=== PATIENT | female | born 1960 | race Two or more races ===

== ENCOUNTER 2021-08-06 13:34 | Outpatient (CLI) | payer OTHER ==
[2021-08-13] MEDS ORDERED: ASPI-992 PO (08:52)
== END 2021-08-06 23:59 | disposition home or self-care (01) ==
LOC: LAB 13:34
PROVIDERS: ATTEND Specialist
DX: Z01.812 Encounter for preprocedural laboratory examination (principal); Z20.822 Contact with and (suspected) exposure to COVID-19
CPT/HCPCS: C9803; U0003

== ENCOUNTER 2021-08-11 05:01 | Inpatient (IN) | payer OTHER ==
[~2021-08-11] VITALS: Ht 170.2 cm; Wt 80.5 kg
[2021-08-11 05:30] VITALS: BP 120/77
--- NOTE | 2021-08-11 05:30 | NUR ---
RN ms admission notes Pt is arrived at the unit ambulatory. Pt is alert and oriented X4. Respiration is normal. No SOB. No s/s of distress noted. IV site at L hand # 20 is clean, intact and flushes easily. Vs is stable. Pt is NPO since last night. Pt is going for R total knee arthroplasty with Dr. lindsay. Consent is signed. pt verbalized understanding. Reorient pt to the room, safety and the use of call light. Safety precautions is maintained. Bed at low position, brakes locked, side rails upX2 and call light is with reach. will continue to monitor.
--- NOTE | 2021-08-11 06:15 | NUR ---
RN ms notes Pt is going for surgery picked up by OR.
[2021-08-11] MEDS ORDERED: BUPIVACAINE 0.5 % PF 150 MG/30 ML VIAL ONE (06:22)
[2021-08-11] MEDS ORDERED: POLYMYXIN B SULFATE 500,000 UNITS ONE (06:22)
[2021-08-11] MEDS ORDERED: ANESTHESIA TRAY IN PYXIS 1 EA TRAY MC ONE ×2 (06:22→06:28)
[2021-08-11] MEDS ORDERED: PROPOFOL 100 ML ONE (06:32)
[2021-08-11] MEDS ORDERED: FENTANYL PF 100MCG/2ML AMPUL ONE (06:39)
[2021-08-11] MEDS ORDERED: MIDAZOLAM HCL 2 MG/2ML VIAL ONE (06:39)
--- NOTE | 2021-08-11 07:10 | NUR ---
Rn ms closing notes. Endorse to am nurse, Pt is in OR.
[2021-08-11] MEDS ORDERED: TRANEXAMIC ACID 3,000 MG in SODIUM CHLORIDE IRRIG SOLUTION 70 ML IR ONE (07:30)
[2021-08-11 08:00] VITALS: BP 140/73
--- NOTE | 2021-08-11 09:20 | NUR ---
RETURNED FROM OR.VS STABLE,AWAKE AND ORIENTED X4.F/C TO GRV. DRAINAGE,IV INFUSING PUMP STOCKINGS ON.SKIN WARM AND DRY.
[2021-08-11] MEDS ORDERED: HYDROCODONE/APAP 5/325MG TABLET PO PRN (09:30)
[2021-08-11] MEDS ORDERED: ZOLPIDEM TARTRATE 5 MG TABLET PO PRN (09:30)
[2021-08-11] MEDS ORDERED: SENNOSIDES 8.6 MG TABLET PO PRN (09:30)
[2021-08-11] MEDS ORDERED: BISACODYL SUPP (10 MG) 10 MG/SUPP.RECT SUPP.RECT RC PRN ×2 (09:30→11:30)
[2021-08-11] MEDS ORDERED: DOCUSATE SODIUM 250 MG CAPSULE PO PRN (09:30)
[2021-08-11] MEDS ORDERED: HYDROMORPHONE 1 MG/1 ML DISP.SYRIN IV PRN (09:30)
[2021-08-11] MEDS ORDERED: ACETAMINOPHEN 325 MG TABLET PO PRN (09:30)
--- NOTE | 2021-08-11 10:30 | NUR ---
DR. DAVIDSON IN AND ORDERS GIVEN.
[2021-08-11] MEDS: IV LR 1000 ML 1,000 ML IV PRN ×2 (10:45→20:14)
[2021-08-11] MEDS ORDERED: MORPHINE SULFATE INJ 4 MG/ML DISP.SYRIN IM/IV/SC ONE (10:46)
[2021-08-11] MEDS ORDERED: MAGNESIUM HYDROXIDE 30 ML UDC PO PRN (11:00)
[2021-08-11] MEDS ORDERED: CLONIDINE HCL 0.1 MG TABLET PO PRN (11:00)
[2021-08-11] MEDS ORDERED: diphenhydrAMINE HCL 25 MG CAPSULE PO PRN (11:00)
[2021-08-11] MEDS ORDERED: MORPHINE SULFATE INJ 4 MG/ML DISP.SYRIN IM/IV/SC PRN (11:00)
[2021-08-11] MEDS ORDERED: MAG HYDROX/AL HYDROX/SIMETH 30 ML UDC PO PRN (11:00)
[2021-08-11] MEDS ORDERED: oxyCODONE IR immediate release 5 MG PO PRN (11:00)
[2021-08-11] MEDS ORDERED: MENTHOL/CETYLPYRD (CEPACOL) 1 LOZ LOZENGE PO PRN (11:00)
--- NOTE | 2021-08-11 11:03 | NUR ---
MED WITH MORPHINE 2MG.
--- NOTE | 2021-08-11 11:56 | NUR ---
GIVEN OXY-IR FOR PAIN.
[2021-08-11] MEDS ORDERED: MORPHINE SULFATE INJ 2 MG/ML DISP.SYRIN IM/IV/SC PRN ×2 (12:30)
[2021-08-11] MEDS: SENNOSIDES 8.6 MG TABLET PO SCH ×2 (13:22→17:50)
--- NOTE | 2021-08-11 13:22 | NUR ---
GIVEN TYLENOL 650 MG FOR PAIN.
--- NOTE | 2021-08-11 14:40 | NUR ---
CALL OUT TO DR. DAVIDSON PAIN MED INEFFECTIVE.NEW ORDERS RECEIVED.
[2021-08-11] MEDS ORDERED: HYDROMORPHONE 1 MG/1 ML DISP.SYRIN SQ ONE (15:00)
--- NOTE | 2021-08-11 15:04 | NUR ---
DILAUDID SQ GIVEN.
[2021-08-11 16:00] VITALS: BP 155/92
[2021-08-11] MEDS: ANCEF 1 GM/50 ML D5W IV SCH ×2 (16:09→22:25)
[2021-08-11] MEDS: DOCUSATE SODIUM 100 MG CAPSULE PO SCH (17:51)
[2021-08-11] MEDS: HYDROMORPHONE 1 MG/1 ML DISP.SYRIN SQ PRN ×2 (18:08→21:19)
--- NOTE | 2021-08-11 18:08 | NUR ---
DILAUDID SQ GIVEN.
[2021-08-11] MEDS: ONDANSETRON HCL/PF 4 MG/2 ML VIAL IVP PRN (18:14)
--- NOTE | 2021-08-11 18:30 | NUR ---
PT STATES PAIN MED NOW MORE EFFECTIVE.
--- NOTE | 2021-08-11 19:15 | NUR ---
RN NOTE REASSESSED PAIN WHILE MAKING MY FIRST ROUND OF THE SHIFT FROM THE DILAUDID THAT WAS PREVIOUSLY GIVEN FROM DAY SHIFT. REASSESSED ZOFRAN EFFECTIVENESS WELL FROM ZOFRAN GIVEN FROM PREVIOUS SHIFT.
--- NOTE | 2021-08-11 19:45 | NUR ---
RN OPENING NOTE PATIENT IN BED, AWAKE. PATIENT IS ON ROOM AIR, TOLERATING WELL WITH NO DISTRESS PATIENT IS ABLE TO MAKE NEEDS KNOWN, A/O X 4. PATIENT REPORTS OF PAIN AT THIS TIME, WILL MANAGE PAIN APPROPRIATELY. RIGHT LOWER EXT HAS ROBERT WRAP AND DRESSING SP TRKA. IV ACCESS PATENT AND INTACT, IV FLUID ON GOING. SAFETY MEASURES IN PLACE: BED LOCKED AND IN LOWEST POSITION, CALL LIGHT WITHIN REACH, SIDE RAILS UP. WILL MONITOR PATIENT CLOSELY.
[2021-08-11 20:00] VITALS: BP 147/98
[2021-08-11] MEDS: FAMOTIDINE (20 MG) 20 MG TABLET PO SCH (20:14)
[2021-08-11] MEDS: oxyCODONE IR immediate release 5 MG PO PRN ×2 (20:15→23:25)
--- NOTE | 2021-08-11 20:15 | NUR ---
RN NOTE OXY IR GIVEN FOR PAIN 6/10 ON RIGHT LEG. WILL REASSESS.
--- NOTE | 2021-08-11 21:19 | NUR ---
RN NOTE DILAUDID GIVEN FOR 10/10 PAIN ON RIGHT LEG. WILL REASSESS PAIN AND MED EFFECTIVENESS.
--- NOTE | 2021-08-11 23:25 | NUR ---
RN NOTE OXY IR GIVEN FOR PAIN 6/10 ON RIGHT LEG. WILL REASSESS.
--- NOTE | 2021-08-12 00:25 | NUR ---
RN NOTE DILAUDID GIVEN FOR 10/10 PAIN ON RIGHT LEG. WILL REASSESS PAIN AND MED EFFECTIVENESS.
[2021-08-12] MEDS: HYDROMORPHONE 1 MG/1 ML DISP.SYRIN SQ PRN ×6 (00:27→18:50)
[2021-08-12] MEDS: oxyCODONE IR immediate release 5 MG PO PRN ×2 (02:42→23:10)
--- NOTE | 2021-08-12 02:46 | NUR ---
RN NOTE OXY IR GIVEN FOR PAIN 6/10 ON RIGHT LEG. WILL EVALUATE MED EFFECTIVENESS AND PAIN RATING.
--- NOTE | 2021-08-12 03:44 | NUR ---
RN NOTE DILAUDID GIVEN FOR 10/10 PAIN ON RIGHT LOWER EXTREMITY.
[2021-08-12] MEDS: IV LR 1000 ML 1,000 ML IV PRN (06:13)
--- NOTE | 2021-08-12 06:48 | NUR ---
RN CLOSING NOTE PATIENT IN BED, AWAKE. PATIENT IS ABLE TO MAKE NEEDS KNOWN. TOLERATING ROOM AIR AT THIS TIME, NO APPARENT DISTRESS. PATIENT'S RLE WRAPPED, DRESSING C/DI. PAIN MANAGED WITH DILAUDID AND OXY IR. DILAUDID GIVEN AT 0644 FOR SEVERE PAIN. MATTHEWS CATHETER STILL IN PLACE, PATIENT REQUESTED MATTHEWS TO BE TAKEN OUT DURING DAY SHIFT WHEN SHE IS MORE AWAKE. SAFETY MEASURES MAINTAINED. ALL NEEDS MET AND ATTENDED. ALL ORDERS CARRIED OUT. WILL ENDORSE TO DAY SHIFT NURSE FOR STEPHANI. Addendum: 08/12/21 at 0652 by HOLDEN FLORES RN SPOKE WITH DR. DAVIDSON ON THE PHONE TO GIVE UPDATE ON PATIENT'S PAIN/SITUATION.
--- NOTE | 2021-08-12 07:19 | NUR ---
MS RN OPENING NOTES RECEIVED PATIENT IN BED, AWAKE. PATIENT IS ABLE TO MAKE NEEDS KNOWN. TOLERATING ROOM AIR AT THIS TIME, NO ACUTE DISTRESS NOTED. PATIENT'S RLE WRAPPED WITH DRY AND INTACT DRESSING. PAIN MANAGED WITH DILAUDID AND OXY IR. NO COMPLAINTS OF PAIN AT THIS TIME. MATTHEWS CATHETER STILL IN PLACE, PATIENT REQUESTED MATTHEWS TO BE TAKEN OUT LATER. SAFETY MEASURES IN PLACE: BED ON LOWEST LOCKED POSITION, SIDE RAILS UP X 2, CALL LIGHT WITHIN EASY REACH. WILL CONTINUE TO MONITOR PATIENT ACCORDINGLY.
[2021-08-12 08:00] VITALS: BP 127/77
[2021-08-12] MEDS ORDERED: oxyCODONE IR immediate release 5 MG PO ONE (08:12)
[2021-08-12] MEDS: DOCUSATE SODIUM 100 MG CAPSULE PO SCH ×2 (08:31→16:20)
[2021-08-12] MEDS: ASPIRIN 325 MG TABLET PO SCH (08:31)
[2021-08-12] MEDS: FAMOTIDINE (20 MG) 20 MG TABLET PO SCH ×2 (08:31→21:22)
[2021-08-12] MEDS: SENNOSIDES 8.6 MG TABLET PO SCH ×2 (08:32→16:20)
--- NOTE | 2021-08-12 09:45 | NUR ---
RN NOTES MATTHEWS CATHETER REMOVED. PATIENT VOIDED 30 MINS AFTER FC REMOVAL.
[2021-08-12] MEDS: ONDANSETRON HCL/PF 4 MG/2 ML VIAL IVP PRN (13:55)
[2021-08-12 15:16] LABS: BASOPHILS % (AUTO) 0.3 % (0.0-2.0); EOSINOPHILS % (AUTO) 0.3 % (0.0-6.0); HEMATOCRIT 34 % (33-45); HEMOGLOBIN 11.6 g/dL (11.5-14.8); LYMPHOCYTES # (AUTO) 1.4 K/uL (0.8-4.8); LYMPHOCYTES % (AUTO) 16.5 % (20.0-44.0); MEAN CORPUSCULAR HGB CONC 34 g/dl (31.0-36.0); MEAN CORPUSCULAR VOLUME 95 fL (82-100); MONOCYTES # (AUTO) 0.7 K/uL (0.1-1.30); MONOCYTES % (AUTO) 8.6 % (2.0-12.0); NEUTROPHILS # (AUTO) 6.2 K/uL (1.8-8.9); NEUTROPHILS % (AUTO) 74.3 % (43.0-81.0); PLATELET COUNT (AUTO) 167 K/uL (150-450); RED BLOOD CELL COUNT(AUTO) 3.59 MIL/uL (4.0-5.2); WHITE BLOOD COUNT (AUTO) 8.3 K/uL (4.3-11.0)
[2021-08-12 15:22] LABS: CALCIUM, SERUM 8.5 mg/dL (8.5-10.1); CREATININE 0.6 mg/dL (0.6-1.3); POTASSIUM 3.6 mmol/L (3.5-5.1)
[2021-08-12 16:00] VITALS: BP 118/68
--- NOTE | 2021-08-12 18:11 | NUR ---
MS RN CLOSING NOTES PATIENT IN BED, AWAKE. PATIENT IS ABLE TO MAKE NEEDS KNOWN. AND DAUGHTER AT BEDSIDE. TOLERATING ROOM AIR AT THIS TIME, NO ACUTE DISTRESS NOTED. PATIENT'S RLE WRAPPED WITH DRY AND INTACT DRESSING. PAIN MANAGED WITH DILAUDID AND OXY IR. NO COMPLAINTS OF PAIN AT THIS TIME. SAFETY MEASURES IN PLACE: BED ON LOWEST LOCKED POSITION, SIDE RAILS UP X 2, CALL LIGHT WITHIN EASY REACH. ALL NEEDS ATTENDED AND MET. DUE MEDS GIVEN ORDERED. WILL ENDORSE TO ONCOMING SHIFT FOR STEPHANI.
--- NOTE | 2021-08-12 19:40 | NUR ---
MS RN OPENING NOTE PT A/OX4; ABLE TO MAKE NEEDS KNOWN. TOLERATING R/A WELL WITH NO SOB. PT DENIES PAIN OR DISCOMFORT AT THIS TIME. DRESSING TO RLE KEPT C/D/I. L HAND #20G S/L; PATENT AND INTACT. SAFETY MEASURES IN PLACE: BED IN LOWEST LOCKED POSITION; SIDE RAILS UPX2, CALL LIGHT WITHIN EASY REACH, BED ALARMS ON. PATIENT IN STABLE CONDITION, WILL CONTINUE PLAN OF CARE.
[2021-08-12 20:00] VITALS: BP 131/66
--- NOTE | 2021-08-12 23:10 | NUR ---
MS RN NOTE - PAIN PT C/O 04/15 R KNEE PAIN. ADMINISTERED OXY-IR ORDERED PER PT'S REQUEST. WILL REASSESS FOR PAIN IN 30 MINUTES.
[2021-08-13] MEDS: HYDROMORPHONE 1 MG/1 ML DISP.SYRIN SQ PRN ×3 (00:41→15:40)
--- NOTE | 2021-08-13 00:41 | NUR ---
MS RN NOTE - PAIN PT C/O 06/15 R KNEE PAIN. ADMINISTERED DILAUDID ORDERED PER PT'S REQUEST. WILL REASSESS FOR PAIN IN 30 MINUTES.
--- NOTE | 2021-08-13 06:07 | NUR ---
MS RN CLOSING NOTE PT A/OX4; ABLE TO MAKE NEEDS KNOWN. TOLERATING R/A WELL WITH NO SOB. PT DENIES PAIN OR DISCOMFORT AT THIS TIME. DRESSING TO RLE KEPT C/D/I. L HAND #20G S/L; PATENT AND INTACT. SAFETY MEASURES IN PLACE: BED IN LOWEST LOCKED POSITION; SIDE RAILS UPX2, CALL LIGHT WITHIN EASY REACH, BED ALARMS ON. PATIENT IN STABLE CONDITION, WILL ENDORSE PLAN OF CARE TO ONCOMING MORNING RN.
[2021-08-13] MEDS: ONDANSETRON HCL/PF 4 MG/2 ML VIAL IVP PRN ×2 (06:23→15:40)
--- NOTE | 2021-08-13 06:31 | NUR ---
MS RN NOTE - PAIN PT C/O 06/15 R KNEE PAIN AND NAUSEA. ADMINISTERED DILAUDID ON R DELTOID AND ZOFRAN ORDERED PER PT'S REQUEST. WILL REASSESS FOR PAIN IN 30 MINUTES.
--- NOTE | 2021-08-13 07:30 | NUR ---
MS RN OPENING NOTES RECEIVED PATIENT IN BED, AWAKE. PATIENT IS ABLE TO MAKE NEEDS KNOWN. TOLERATING ROOM AIR AT THIS TIME, NO ACUTE DISTRESS NOTED. PATIENT'S RLE WRAPPED WITH DRY AND INTACT DRESSING. PAIN MANAGED WITH DILAUDID AND OXY IR. NO COMPLAINTS OF PAIN AT THIS TIME. IV ACCESS ON LEFT HAND G#20, PATENT AND FLUSHES WELL. SAFETY MEASURES IN PLACE: BED ON LOWEST LOCKED POSITION, SIDE RAILS UP X 2, CALL LIGHT WITHIN EASY REACH. WILL CONTINUE TO MONITOR PATIENT ACCORDINGLY.
[2021-08-13] MEDS: ASPIRIN 325 MG TABLET PO SCH (08:25)
[2021-08-13] MEDS: SENNOSIDES 8.6 MG TABLET PO SCH (08:25)
[2021-08-13] MEDS: FAMOTIDINE (20 MG) 20 MG TABLET PO SCH (08:25)
[2021-08-13] MEDS: DOCUSATE SODIUM 100 MG CAPSULE PO SCH (08:25)
[2021-08-13] MEDS ORDERED: ASPI-992 PO (08:52)
[2021-08-13] MEDS: oxyCODONE IR immediate release 5 MG PO PRN (10:18)
--- NOTE | 2021-08-13 16:01 | NUR ---
MS DISCHARGE NOTES DISCHARGED PATIENT IN GOOD CONDITION, WITH STABLE VITAL SIGNS. HOME INSTRUCTIONS/MEDICATIONS/FOLLOW UP INSTRUCTED, PATIENT VERBALIZED UNDERSTANDING. IV ACCESS REMOVED, COVERED WITH GAUZE, NO BLEEDING NOTED. ARM BAND REMOVED. BELONGINGS SIGNED AND ACCOUNTED FOR. DRESSING ON RIGHT LOWER LEG DRY AND INTACT. DRESSING CHANGED BY MONIQUE HOFFMANN PRIOR TO DC. WHEELED PATIENT TO LYDIA ACCOMPANIED BY LOBITO HI). LEFT UNIT WITH AND DAUGHTER IN STABLE CONDITION. Addendum: 08/13/21 at 1605 by ALEKSANDR SOTOMAYOR RN MD AND CHARGE NURSE AWARE OF DISCHARGE.
== END 2021-08-13 16:00 | disposition home or self-care (01) | DRG 470 ==
LOC: DS 05:01 → MED 05:03
PROVIDERS: ADMIT Internal Medicine; ATTEND Internal Medicine
PROC: 0SRC0J9 Replacement of Right Knee Joint with Synthetic Substitute, Cemented, Open Approach (ICD-10-PCS; principal; 2021-08-11)
DX: M17.11 Unilateral primary osteoarthritis, right knee (principal); Y99.0 Civilian activity done for income or pay; X58.XXXA Exposure to other specified factors, initial encounter; E66.9 Obesity, unspecified; Z88.0 Allergy status to penicillin; Z68.27 Body mass index [BMI] 27.0-27.9, adult
CPT/HCPCS: 36415; 80048-TC; 85025-TC; 86850-TC; 87081-TC; 97116-TC; 97530-TC; 97760-TC; A4217; C1713; C1776; G0378; J0690; J1170; J2250; J2270; J2405; J2704; J3010; J3490; J7030; J7060; J7120; L1830